=== PATIENT | female | born 2000 | race Caucasian/White ===

== ENCOUNTER 2022-12-01 05:38 | Emergency (ER) | payer OTHER, SELFPAY | END 2022-12-01 05:43 | disposition home or self-care (01) | LOC: ER 05:46 | PROVIDERS: Emergency Provider Emergency Medicine | DX: R11.10 Vomiting, unspecified (principal); A04.72 Enterocolitis due to Clostridium difficile, not specified as recurrent | CPT/HCPCS: 99283 ==

== ENCOUNTER 2022-12-19 10:40 | Emergency (ER) | payer OTHER, SELFPAY ==
[2022-12-19 10:47] VITALS: BP 144/88; PULSE 88; RESP 22; O2SAT 100; BMI 28.1
--- NOTE | 2022-12-19 10:54 | ED.NAVMDI1 ---
HPI - Nausea/Vomiting/Diarrhea General Chief complaint: Nausea/Vomiting/Diarrhea Stated complaint: NAUSEA/DEHYDRATION Time Seen by Provider: 12/19/22 10:51 Source: patient Mode of arrival: walk-in History of Present Illness HPI Narrative: 22-year-old female presents to the emergency department for nausea vomiting and a little bit of diarrhea. She states she drank much alcohol last night. No fever or hematemesis. She feels dehydrated. She doesn't have periods because of IUD. Related Data Previous Rx's Medication Instructions Recorded ondansetron 4 mg disintegrating 4 mg PO Q6H PRN nausea and 12/19/22 tablet vomiting #20 tabs Allergies Allergy/AdvReac Type Severity Reaction Status Date / Time No Known Drug Allergies Allergy Verified 12/19/22 10:47 Review of Systems ROS Narrative A ten point review of systems is negative except as noted above. Exam Narrative Exam Narrative: Nurses note and vital signs reviewed and patient is not hypoxic. General: The patient appears uncomfortable Skin: Warm, dry, to light pallor noted. There is no rash noted. Head: Normocephalic, atraumatic Eye: Normal conjunctiva, no drainage Ears, Nose, Mouth, and Throat: oral mucosa is mildly dry Cardiovascular: Regular Rate and Rhythm Respiratory: Patient is in no distress, no accessory muscle use, lungs are clear to auscultation, no wheezing, rales or rhonchi Back: non-tender GI: soft and nontender Musculoskeletal: The patient has no evidence of calf tenderness, no pitting edema, symmetrical pulses noted bilaterally Neurological: A&O, normal speech Psychiatric: Cooperative Constitutional Vital Signs, click to edit/add: Last Vital Signs Pulse 88 12/19/22 10:47 Resp 22 12/19/22 10:47 BP 144/88 H 12/19/22 10:47 Pulse Ox 100 12/19/22 10:47 O2 Del Method Room Air 12/19/22 10:53 Course Vital Signs Vital signs: Vital Signs Pulse Rate 88 12/19/22 10:47 Respiratory Rate 22 12/19/22 10:47 Blood Pressure 144/88 H 12/19/22 10:47 Pulse Oximetry 100 12/19/22 10:47 Oxygen Delivery Method Room Air 12/19/22 10:47 Pulse Rate 88 12/19/22 10:47 Respiratory Rate 22 12/19/22 10:47 Blood Pressure 144/88 H 12/19/22 10:47 Pulse Oximetry 100 12/19/22 10:47 Oxygen Delivery Method Room Air 12/19/22 10:53 MDM - Nausea/Vomiting/Diarrhea MDM Narrative Medical decision making narrative: The patient was given IV fluids and Zofran and feels much better now. She is able to be discharged home. Treatment diagnosis and follow-up were discussed with the patient. Differential Diagnosis Differential diagnosis: Likely food poisoning, gastroenteritis, dehydration and other (alcohol abuse) Lab Data Attestation: I reviewed the patient's lab results. Labs: Lab Results 12/19/22 Range/Units 11:05 WBC 14.1 H (4.0-11.0) 10^3/uL RBC 4.50 (4.20-5.40) 10^6/uL Hgb 13.5 (12.0-16.0) g/dL Hct 39.4 (36.0-48.0) % MCV 87.6 (81.0-99.0) fL MCH 30.0 (26.7-34.0) pg MCHC 34.3 (29.9-35.2) g/dL RDW 12.2 (11.0-15.0) % Plt Count 431 (150-450) 10^3/uL MPV 9.2 L (9.5-13.5) fL Neut % (Auto) 83.3 H (43.0-75.0) % Lymph % (Auto) 10.5 L (20.5-60.0) % Deuel % (Auto) 5.0 (1.7-12.0) % Eos % (Auto) 0.1 L (0.9-7.0) % Baso % (Auto) 0.7 (0.2-2.0) % Neut # (Auto) 11.8 H (1.4-6.5) 10^3/uL Lymph # (Auto) 1.5 (1.2-3.8) 10^3/uL Deuel # (Auto) 0.7 (0.3-0.8) 10^3/uL Eos # (Auto) 0.0 (0.0-0.7) 10^3/uL Baso # (Auto) 0.1 (0.0-0.1) 10^3/uL Abs Immat Gran (auto) 0.06 H (0.00-0.03) 10^3/uL Imm/Tot Granulo (auto) 0.4 (0.0-0.5) % Sodium 135 L (136-145) mmol/L Potassium 3.0 L (3.5-5.1) mmol/L Chloride 99 (98-107) mmol/L Carbon Dioxide 16.2 L (21.0-32.0) mmol/L Anion Gap 22.8 BUN 13.0 (7.0-18.0) mg/dL Creatinine 0.87 (0.55-1.02) mg/dL Est GFR ( Amer) >60 (>=60) Est GFR (Non-Af Amer) >60 (>=60) BUN/Creatinine Ratio 14.9 Glucose 163 H (74-106) mg/dL Calcium 8.9 (8.5-10.1) mg/dL Serum HCG, Qual Negative (NEGATIVE) Discharge Plan Discharge Chief Complaint: Nausea/Vomiting/Diarrhea Clinical Impression: Nausea & vomiting Patient Disposition: Home, Self-Care Time of Disposition Decision: 11:52 Condition: Good Mode of Transportation: Private Vehicle Prescriptions / Home Meds: New ondansetron 4 mg tablet,disintegrating 4 mg PO Q6H PRN (Reason: nausea and vomiting) Qty: 20 0RF Instructions: Acute Nausea and Vomiting (ED) Stand Alone Forms: Portal Instructions Referrals: Physician,Non-Staff, MD [Primary Care Provider] - 1 week
[2022-12-19] MEDS: 0.9 % SODIUM CHLORIDE 1,000 ML 1000 ML IV (11:04)
[2022-12-19] MEDS: ONDANSETRON PF 4 MG/2 ML VIAL IV (11:05)
[2022-12-19 11:21] LABS: Basophils Absolute Auto 0.1 10^3/uL (0.0-0.1); Basophils Percent Auto 0.7 % (0.2-2.0); Eosinophils Percent Auto 0.1 % (0.9-7.0); Hematocrit 39.4 % (36.0-48.0); Hemoglobin 13.5 g/dL (12.0-16.0); Immature Granulocytes Abs Auto 0.06 10^3/uL (0.00-0.03); Immature Granulocytes Pct Auto 0.4 % (0.0-0.5); Lymphocytes Absolute Auto 1.5 10^3/uL (1.2-3.8); Lymphocytes Percent Auto 10.5 % (20.5-60.0); Mean Corpuscular HGB Conc 34.3 g/dL (29.9-35.2); Mean Corpuscular Volume 87.6 fL (81.0-99.0); Mean Platelet Volume 9.2 fL (9.5-13.5); Monocytes Absolute Auto 0.7 10^3/uL (0.3-0.8); Neutrophils Absolute Auto 11.8 10^3/uL (1.4-6.5); Neutrophils Percent Auto 83.3 % (43.0-75.0); Platelet Count 431 10^3/uL (150-450); Red Cell Distribution Width 12.2 % (11.0-15.0); White Blood Count 14.1 10^3/uL (4.0-11.0)
[2022-12-19 11:23] LABS: Anion Gap 22.8; BUN Creatinine Ratio 14.9; Calcium 8.9 mg/dL (8.5-10.1); Carbon Dioxide 16.2 mmol/L (21.0-32.0); Chloride 99 mmol/L (98-107); Estimated GFR (African America >60 (>=60); Estimated GFR (Non-African Ame >60 (>=60); Glucose 163 mg/dL (74-106); Sodium 135 mmol/L (136-145)
[2022-12-19 11:30] LABS: HCG Qualitative NEGATIVE (NEGATIVE)
== END 2022-12-19 12:01 | disposition home or self-care (01) ==
PROVIDERS: Emergency Provider Emergency Medicine
DX: R11.2 Nausea with vomiting, unspecified (principal)
CPT/HCPCS: 36415; 80048; 84703; 85025; 96374; 99284